=== PATIENT | female | born 1955 | race Two or more races ===

== ENCOUNTER 2018-11-16 12:05 | Outpatient (CLI) | payer OTHER | END 2018-11-16 12:15 | disposition home or self-care (01) | LOC: SONOGRAMA 12:05 | DX: E04.1 Nontoxic single thyroid nodule (principal) ==

== ENCOUNTER 2019-06-27 08:19 | Outpatient (CLI) | payer OTHER | END 2019-06-27 08:25 | disposition home or self-care (01) | LOC: SONOGRAMA 08:19 | DX: E04.2 Nontoxic multinodular goiter (principal) ==

== ENCOUNTER 2021-12-23 07:17 | Outpatient (CLI) | payer OTHER | END 2021-12-23 08:00 | disposition home or self-care (01) | LOC: SONOGRAMA 07:17 | PROVIDERS: ATTEND Orthopaedic Surgery | DX: M25.561 Pain in right knee (principal); S83.201A Bucket-handle tear of unspecified meniscus, current injury, left knee, initial encounter ==